=== PATIENT | female | born 2000 | race Two or more races ===

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

== ENCOUNTER 2020-05-12 11:30 | Emergency (ER) | payer SELFPAY ==
[~2020-05-12] VITALS: Ht 160 cm; Wt 79.0 kg
[~2020-05-12 11:30] MED LIST changes: +OMNICEF300 M1 PO; +ONDANSETRON4 MG PO
[2020-05-12] MEDS ORDERED: IBUPROFEN600 MG PO (13:27)
[2020-05-12 14:05] VITALS: BP 134/77
== END 2020-05-12 14:15 | disposition home or self-care (01) | DRG 563 ==
LOC: ED 11:30
DX: S93.402A Sprain of unspecified ligament of left ankle, initial encounter (principal); W10.9XXA Fall (on) (from) unspecified stairs and steps, initial encounter; Y92.009 Unspecified place in unspecified non-institutional (private) residence as the place of occurrence of the external cause

== ENCOUNTER 2020-09-07 03:56 | Emergency (ER) | payer SELFPAY ==
[~2020-09-07] VITALS: Ht 160 cm; Wt 81.8 kg
[~2020-09-07 03:56] MED LIST changes: +IBUPROFEN600 MG PO
[2020-09-07 04:51] LABS: URINE BILIRUBIN - DIPSTICK NEGATIVE (NEGATIVE); URINE BLOOD DIPSTICK NEGATIVE (NEGATIVE); URINE COLOR YELLOW; URINE GLUCOSE - DIPSTICK NEGATIVE (NEGATIVE); URINE KETONE NEGATIVE (NEGATIVE); URINE NITRITE - DIPSTICK NEGATIVE (Negative); URINE PROTEIN - DIPSTICK NEGATIVE (NEG-TRACE); URINE UROBILINOGEN - DIPSTICK 0.2 E.U./dL (0.2)
[2020-09-07 04:52] LABS: URINE LEUK ESTERASE SMALL (NEGATIVE)
[2020-09-07] MEDS ORDERED: EFFEXOR XR75 MG/CAP PO (04:56)
[2020-09-07 04:58] LABS: URINE SQUAMOUS EPITHELIAL CELL FEW EPI/hpf (0-FEW)
[2020-09-07 06:18] LABS: HEMATOCRIT 39.7 % (37.0-47.0); HEMOGLOBIN 12.9 g/dl (12.0-16.0); IMMATURE GRANULOCYTES 0.3 % (0.0-5.0); MEAN CORPUSCULAR HGB 29.3 pG CALC (26.0-32.0); MEAN CORPUSCULAR HGB CONC 32.5 g/dL CAL (32.0-36.0); NEUT# 6.78 thou/uL (2.00-7.15); RED BLOOD COUNT 4.41 mill/uL (4.20-5.60); RED CELL DISTRI WIDTH 12.1 % (11.5-15.5)
[2020-09-07 06:36] LABS: ALBUMIN 4.3 g/dL (3.2-5.0); ALKALINE PHOSPHATASE 73 u/l (38-126); ANION GAP 11 (6-22 (CALC)); BILIRUBIN, TOTAL 0.1 mg/dL (0.0-1.4); BUN 10 mg/dL (7-17); BUN/CREATININE RATIO 12 (12-20 (CALC)); CARBON DIOXIDE 27 mmol/l (22-30); CHLORIDE 101 mmol/l (95-108); CPK 115 u/l (30-165); CREATININE 0.8 mg/dL (0.5-1.0); ETHYL ALCOHOL 0 mg/dl (0-30); GFR > 60 ML/MIN (>=60 (CALC)); GFR FOR AFR.AMER. > 60 ML/MIN (>=60 (CALC)); MAGNESIUM 1.8 mg/dL (1.6-2.3); POTASSIUM 3.6 mmol/l (3.5-5.1); SGOT/AST 23 u/l (14-36); SODIUM 135 mmol/l (137-146); TOTAL PROTEIN 7.3 g/dL (6.3-8.2)
[2020-09-07 06:59] VITALS: BP 132/82
== END 2020-09-07 07:05 | disposition home or self-care (01) | DRG 897 ==
LOC: ED 03:56
PROVIDERS: Family Medicine
DX: F12.10 Cannabis abuse, uncomplicated (principal); M26.623 Arthralgia of bilateral temporomandibular joint; F17.200 Nicotine dependence, unspecified, uncomplicated